=== PATIENT | male | born 1990 | race Caucasian/White ===

== ENCOUNTER 2017-01-09 08:09 | Emergency (ER) | payer OTHER ==
[~2017-01-09] VITALS: Ht 180.3 cm; Wt 88.6 kg
[2017-01-09 08:17] VITALS: BP 81/44; PULSE 51; RESP 18; O2SAT 100
[2017-01-09 08:29] VITALS: BP 97/68; PULSE 83; RESP 20; O2SAT 100
--- NOTE | 2017-01-09 08:29 | ED.REPORT ---
HPI-Extremity Problem Upper Date of Service January 09, 2017 ED Provider: Dr. Kamini Saucedo The patient is a 26 year old male who presents to the ED due to a full thickness laceration to right inner forearm received [employer]. The patient was lifting a large planting pot at work when it broke and cut his arm. He wrapped a piece of cardboard around the cut to try and stop the bleeding and alerted coworkers who applied pressure to the wound. Pt describes losing a large amount of blood. C/o associated light headedness and weakness in right ring finger. Nursing Notes Stated Complaint: RIGHT FOREARM LACERATION Chief Complaint: Extremity Trauma Nursing Notes Reviewed: Yes Allergies: Coded Allergies: No Known Allergies (Unverified , 01/09/17) Scheduled Cephalexin (Keflex) 500 Mg Capsule 500 MG PO TID Scheduled PRN oxyCODONE-Acetaminophen 5-325 mg (oxyCODONE-Acetaminophen 5-325 mg) 1 Each Tablet 1 TAB PO Q6H PRN PRN For Pain General Time Seen by MD: 08:28 Chief Complaint Other (left forearm laceration) Hx Obtained From: Patient Arrived By: Walk-in Onset Occurred: Just prior to arrival Symptom Duration: Since onset Caused by: Accidental Location: : Forearm left Quality: Painful Severity: Current: Mild Recent Healthcare: No recent doctor visit, No recent hospitalization Similar Sx Previous: No Past Medical History Past Medical History denies Past Surgical History denies Social History Drug Use: THC Other Social History: Good social support, Local resident Ambulatory Status Independent Review of Systems Musculoskeletal: Reports: Extremity pain (left forearm laceration ) Neurologic: Reports: Lightheaded, Weakness (in right ring finger), Denies: Change LOC, Numbness Complete sys rev & neg: except as marked. Physical Exam Initial Vital Signs Vital Signs (First) Date Time Temp Pulse Resp B/P Pulse Ox O2 Delivery O2 Flow Rate FiO2 01/09/17 08:17 51 18 81/44 100 Room Air Initial VS: Reviewed Head / Eyes: Atraumatic, Normocephalic ENT: Mucous membranes moist Respiratory: Breath sounds normal, Clear to auscultation Abdomen / GI: Soft, Non-tender, No guarding, No rebound, No distention Lower Extremities: Vascular intact, Neuro intact, No swelling, No tenderness General/Constitutional: Awake, Alert, Cooperative Appearance / Presentation: Positive: Pale Cardiovascular: Regular rhythm, Heart sounds NL, Cap refill not delayed Trauma / Burn / Environmental: Positive: Laceration right forearm 7 cm full thickness laceration w/ clear tendon laceration body of the flexor muscle is lacerated at the tendon insertion and there is an additional mid-tendon laceration weakness in ring finger w/ flexion decreased sensation to tips of all right 5 fingers normal sensation over dorsal and palmar surface of hand Procedures Laceration Management Laceration Management: 3 horizontal sutures 4 mattress sutures Time: 11:06 Procedure Performed by: ED physician Consent / Setup / Site Prep: Informed consent provided, Consent from patient , Hand hygiene observed, Stand sterile technique Location of Wound: right forearm Wound Length: 7 cm Local Anesthesia: Bupivacaine 0.5% Digital Block: No Irrigation: Copious (sodium chloride) Foreign Body Explore / Removal: Explored for foreign body Repair Skin: Nylon Post-Procedure / Complications: Antibiotic oint applied, Dressing applied, No complications, Condition improved, Tolerated procedure well, Patient stable Re-Eval/Medical Decision Re-Evaluation/Progress #1: Time of Eval: 10:26 Patient Status: Pain improved Re-Evaluation/Progress Note: Pt rechecked. Informed pt of consult with orthopedist and need for surgery. Plan for tetanus shot and laceration repair. Pt understands and agrees with plan. Re-Evaluation/Progress #2: Time of Eval: 11:00 Patient Status: Condition improved Re-Evaluation/Progress Note: Laceration management perfomed. Pt tolerated procedure well. He is able to ambulate following the procedure. Plan for splint placement. Re-Evaluation/Progress #3: Time of Eval: 12:15 Patient Status: Condition improved, Complete relief Re-Evaluation/Progress Note: Pt rechecked. Pain is much better and splint is in place. He is neurovascularly intact. Informed pt of plan of treatment and need for follow up. F/U and RTER warnings given. Pt understands and agrees with plan. All questions addressed. Consultation : Referral / Consult Name: Vicente Garrett DO Consulted With: Orthopedic Call Returned at: 09:56 Note: Case discussed. Dr. Garrett advised to do a loose suture close as well as antibotics, tetanus, and dorsal splint. He will need to be seen by Dr. Garrett in just a few days. Counseled Regarding: Diagnosis, Lab results, Need for follow-up, When/why to return to ED Discharge & Departure Impression: Primary Impression: Laceration of forearm, right, with tendon involvement Encounter type: initial encounter Qualified Code: S51.811A - Laceration without foreign body of right forearm, initial encounter Additional Impression: Flexor tendon laceration of forearm with open wound Encounter type: initial encounter Laterality: right Qualified Code: S56.921A - Laceration of unspecified muscles, fascia and tendons at forearm level, right arm, initial encounter Disposition: Home Discharge Condition All VS Reviewed: Yes Condition: Stable Patient Instructions: Laceration (GEN) Additional Instructions: You have severed your flexor tendon and may require surgery. You received a tetanus shot today. Keep the splint in place and take ibuprofen or Percocet as needed for pain. Keep the wound clean and dry. Continue your antibiotics for one week. You will need to see Dr. Garrett, orthopedic surgeon, in the next 1-2 days for further evaluation. Do not return to work before speaking with Dr. Garrett. Return to the Emergency Department for any new or worsening symptoms including lightheadedness, excessive bleeding, signs of infection, redness, warmth, and discharge. I hope you feel better soon! Referrals: Miguel Choudhury MD (PCP) Vicente Garrett DO Scribe Attestation Portion of this note were transcribed by Jeanette Figueroa. I, Dr. Valerie aSucedo, personally performed the history, physical exam, and medical decision-making: I reviewed and confirmed the accuracy for the information in the transcribed note. Signed by: amauri Sidhu, 01/09/17 1000 copies to: Vicente Garrett DO; Miguel Choudhury MD, Shawna L MD January 09, 2017 08:29 Jeanette Figueroa January 09, 2017 08:37
[2017-01-09] MEDS ORDERED: oxyCODONE-Acetamin 5-325 mg Tablet PO ONE (08:45)
[2017-01-09 09:12] VITALS: BP 109/45; PULSE 65; RESP 16; O2SAT 100
[2017-01-09] MEDS ORDERED: TdaP Vaccine 0.5 mL Inj IM ONE (10:10)
[2017-01-09 11:52] VITALS: BP 103/44; PULSE 62; RESP 14; O2SAT 99
[2017-01-09] MEDS ORDERED: CEPH-512 PO (12:34)
[2017-01-09] MEDS ORDERED: OXYC1TAB24 PO (12:34)
[2017-01-09 12:53] VITALS: BP 103/44; PULSE 62; RESP 14; O2SAT 99
== END 2017-01-09 12:54 | disposition home or self-care (01) ==
LOC: SED 08:09
DX: S56.221A Laceration of other flexor muscle, fascia and tendon at forearm level, right arm, initial encounter (principal); W45.8XXA Other foreign body or object entering through skin, initial encounter; Y93.89 Activity, other specified; Y92.9 Unspecified place or not applicable; Y99.0 Civilian activity done for income or pay; Z23 Encounter for immunization

== ENCOUNTER 2017-01-12 14:14 | Day surgery (SDC) | payer OTHER ==
[2017-01-12] VITALS (8 sets, daily range): BP systolic 98–130; BP diastolic 53–75; PULSE 60–75; RESP 13–17; O2SAT 96–98
[~2017-01-12] VITALS: Ht 180.3 cm; Wt 90.2 kg
[~2017-01-12 14:14] MED LIST: CEPH-512 PO; CeFAZolin Inj 2 GM in IV Premix 1 EACH IV SCH; Lactated Ringer's 1,000 ML IV SCH; OXYC1TAB24 PO
[2017-01-12] MEDS ORDERED: Ondansetron 2 mg/mL 2 mL Inj ONE (14:15)
[2017-01-12] MEDS ORDERED: Propofol 10,000 mCg/mL 20 mL Inj ONE (14:15)
[2017-01-12] MEDS ORDERED: Dexamethasone 4 mg/mL Inj ONE (14:15)
[2017-01-12] MEDS ORDERED: fentaNYL-PF 50 mCg/mL 2 mL Inj ONE (14:15)
--- NOTE | 2017-01-12 14:24 | PCM.HPANE ---
Patient Data Surgeon Admitting Provider: Attending Provider:Vicente Garrett DO Primary Care Physician:Bello Other Provider:Lyric Bates Anesthesia Reason for Visit Right Forearm Laceration With Tendon Involvement Ht/WT & BMI Height (Feet): 5 Height (Inches): 11 Weight (Kilograms): 90.174 Body Mass Index 27.00 Allergies Coded Allergies: No Known Allergies (Unverified , 01/11/17) Past Anesthesia History Anesthesia History: Denies:: Anesthesia Reactions, Malignant Hyperthermia Diabetes History Hx Diabetes?: No MRSA MRSA: No Medications Active Scripts oxyCODONE-Acetaminophen 5-325 mg 1 Each Tablet1 Tab PO Q6H PRN For Pain #14 TABLET Ref 0 Prov:Kamini Saucedo MD 01/09/17 Cephalexin (Keflex)500 Mg [id number] Mg PO TID #21 CAPSULE Ref 0 Prov:Kamini Saucedo MD 01/09/17 History History of ENT Problems?: No HEENT History: Denies:: Abnormal Airway Denture Type: None Teeth Condition: Within Normal Limits Hx of Heart Problems?: No Cardiovascular History: Denies:: Heart Murmur Hypertension Hx of Respiratory Problem?: No Respiratory History: Denies:: Use of C-PAP Machine Hx Neurologic Problems?: No Hx of GI Problems?: No Hx of Problems?: No Male Hx: Denies:: Prostate Problems Scrotal Mass Testicular Surgery Skin History: Denies:: History Skin Disorders? Pressure Ulcers Hx Musculoskeletal Problems?: Yes Musculoskeletal History: Positive for:: Musculoskeletal Trauma (RT FOREARM LACERATION(FLEXOR TENDON INVOLVE.)=CURRENT PROBLEM) Hx of Psycho/Social Problems?: No Hx Surgeries?: Yes (EXC & DEBRIDEMENT PILONIDAL CYST X4) Hx Any Other Health Problems?: Yes Other History: Denies:: Cancer Endocrine Disease Hospitalization Thyroid Disease Hx Diabetes: No Hx Substance Use: Yes (THC)Have You Smoked inLast 12 mo: No Stop/Bang S-Snoring: Do You Snore Loudly: No T-Tired: feel tired, fatigued: No O-Obsered: Observed not breath: No P-Blood Pressure: treated: No B- Body Mass Index > 35 kg/m2: No A- Age over 50: No N- Neck Large Circumference: No G- Gender Male: Yes CARL Total Score: 1 CARL Risk Assessment: Low Risk, <3 Yes Risk Assessment Category Category 1A: Patient has history of documented sleep apnea, and HAS NOT received any narcotic, sedative or anesthesia administration during this stay. Category 1B: Patient has history of documented sleep apnea, and HAS received any narcotic , sedative or anesthesia administration during this stay Category 2: Patient has SUSPECTED Obstructive Sleep Apnea, and HAS received any narcotic , sedative or anesthesia administration during this stay. Category 3: Patient has SUSPECTED Obstructive Sleep Apnea and HAS NOT received narcotic, sedative or anesthesia administration during this stay. Category 4: Outpatient in Procedural Areas with known sleep apnea or who screen positive for High Risk via the STOP/BANG questionnaire. Exam Exam General Appearance: Alert, Oriented X3, Cooperative, No Acute Distress HEENT/AIRWAY: MP 1 Lungs: Clear to Auscultation, Normal Air Movement Heart: Exam Unremarkable, Regular Rate/Rhythm, No Murmurs/Rubs/Gallops Plan Impression Patient chart reviewed, patient interviewed and anesthestic plan with risks, benefits, and alternatives discussed, and informed consent obtained. NPO per Anesth. Guidelines: Yes ASA Physical Status: ASA1 Normal Healthy Anesthetic Plan: GA Bene/Risks/Altern/Consents: Yes HP Complete Prior to Induction: Yes Barney Valentino MD January 12, 2017 14:24
[2017-01-12] MEDS ORDERED: Lactated Ringer's 1,000 ML IV ONE ×2 (14:36→17:27)
[2017-01-12] MEDS ORDERED: oxyCODONE-Acetamin 5-325 mg Tablet PO PRN (15:10)
[2017-01-12] MEDS ORDERED: Lidocaine 1%-Epi 1:100,000 20 mL Inj INJ ONE (15:57)
[2017-01-12] MEDS ORDERED: Lactated Ringer's 1,000 ML IV SCH (16:11)
[2017-01-12] MEDS ORDERED: Lactated Ringer's 500 ML IV PRN (16:11)
[2017-01-12] MEDS ORDERED: Phenylephrine 10,000 mCg/mL Inj IVPUSH PRN (16:15)
[2017-01-12] MEDS ORDERED: EPHEDrine Sulfate 50 mg/mL Inj IVPUSH PRN (16:15)
[2017-01-12] MEDS ORDERED: fentaNYL-PF 50 mCg/mL 2 mL Inj IVPUSH PRN (16:15)
[2017-01-12] MEDS ORDERED: Atropine 0.4 mg/mL Inj IVPUSH PRN (16:15)
[2017-01-12] MEDS ORDERED: Dexamethasone 4 mg/mL Inj IVPUSH PRN (16:15)
[2017-01-12] MEDS ORDERED: Ondansetron 2 mg/mL 2 mL Inj IVPUSH PRN (16:15)
[2017-01-12] MEDS ORDERED: HYDROmorphone 1 mg/mL Inj IVPUSH PRN (16:15)
[2017-01-12] MEDS ORDERED: MetoCLOpramide 5 mg/mL 2 mL Inj IVPUSH PRN (16:15)
--- NOTE | 2017-01-12 17:54 | PCM.ANEP1 ---
Post Anesthesia PACU Phase 1 Assessment Vital Signs Vital Signs Date Time Temp Pulse Resp B/P Pulse Ox O2 Delivery O2 Flow Rate FiO2 01/12/17 17:28 36.7 70 14 126/74 98 Room Air 01/12/17 17:26 61 13 114/58 96 01/12/17 17:10 62 14 113/69 96 01/12/17 17:05 60 17 115/53 97 Room Air 01/12/17 17:00 36.8 62 14 113/57 97 Room Air 01/12/17 14:31 36.6 60 14 130/70 98 Room Air Anesthetic Administered: GA Level of Alertness: Awake, talking DOS SANTOS's with Equal Strength: Yes Pain: No Nausea or Vomiting: No CV Function and Hydration: Yes Airway Device: Oralpharangeal Airway Oxygen Delivery: Room Air Lungs: Clear to Auscultation, Normal Air Movement Dermatome Level: Full Sensation PACU Phase 2 Assessment Complications: No Follow up Care: N/A Patient Instructions Provided: Yes Barney Valentino MD January 12, 2017 17:54
--- NOTE | 2017-01-13 19:50 | OP ---
[address] [id number] OPERATIVE REPORT PATIENT: CARLOS A LOGAN : 1990 MR#: [id number] ADMIT: 01/12/2017 JOB ID: [id number] DATE OF SURGERY: 01/12/2017 PREOPERATIVE DIAGNOSIS(ES): Right forearm laceration with laceration of flexor digitorum superficialis to the ring finger. POSTOPERATIVE DIAGNOSIS(ES): 1. Right forearm laceration with complete laceration of the flexor digitorum superficialis to the ring finger. 2. Partial laceration of the flexor digitorum superficialis to the middle finger. 3. Near full laceration of flexor carpi ulnaris. 4. Laceration of the palmaris longus. PROCEDURE: 1. Repair of right ring finger flexor digitorum superficialis at the forearm. 2. Right forearm exploration with repair of the flexor digitorum superficialis to the middle finger. 3. Repair of the flexor carpi ulnaris. 4. Repair of the palmaris longus. SURGEON: Vicente Garrett DO ANESTHESIA: General. HISTORY: This patient is a pleasant, 26-year-old male who was working at [employer] when he was lifting a porcelain pot, when it cracked and came down onto his right forearm. He sustained a laceration to the volar ulnar aspect of the forearm. He was seen at an outlying facility where it was provisionally irrigated and closed. Upon presentation, he has weakness with hand flexion; especially to the ring finger with lack of function to the FDS tendon to the ring finger. Neurologically, he was intact with completely intact sensation in median, radial and ulnar nerve distribution. With his weakness to the hand as well as limitation with any PIP flexion to the ring finger, I discussed with the patient the risks, benefits, and indications to proceed with exploration with likely tendon repair. He understood the risks include, but not limited to, neurovascular injury, tendon injury, infection, failure of fixation, stiffness, persistent pain, all of which may require further intervention. The patient had all questions answered. Consent was signed and placed in chart. PROCEDURE IN DETAIL: The patient was brought to the operative suite and placed supine on the operating room table. Surgical time-out was performed and everyone was in agreement. After appropriate anesthesia was obtained, a right upper arm tourniquet was applied. The right upper extremity prepped and draped in a sterile fashion. Patient's sutures were removed. The incision was carried in a linear fashion both proximally and distally along the ulnar aspect of the transverse incision. Large skin flaps were then raised. Immediately identifiable was a complete laceration to the palmaris longus. Deep to this was a complete laceration of the flexor digitorum superficialis to the ring finger. Elevating of this identified an 80% laceration of the flexor digitorum superficialis to the middle finger. Further ulnarly, the flexor carpi ulnaris demonstrated 90% laceration. The ulnar artery and nerve were identified and were found to be completely intact as well as remaining flexor digitorum superficialis and profundus tendons and the median nerve. Copious irrigation was performed. A direct repair of the tendons were performed first starting with the flexor digitorum superficialis to the middle finger. This was repaired with 5-0 nylon in a cross-stitch fashion reinforced with [id number] 4-0 Vicryl as the tendon at this location was flat. Excellent repair was achieved. Attention was then turned towards the flexor digitorum superficialis to the ring finger. The tendon at this level had more bulk and thus a 4-0 FiberLoop was used to perform a 6-strand core suture repair followed by a 6-0 nylon for epitendinous stitch. Attention was then turned towards the flexor carpi ulnaris. Again a 4-0 FiberLoop was used to perform a 6-strand core suture repair followed by a 6 cross-stitch epitendinous suture. Finally, decision was made to also repair the palmaris longus as the cut tendon ends were easily identifiable within the operative field. This was repaired with a 4-0 FiberLoop in a 4-strand core suture repair further reinforced with 6-0 nylon. Copious irrigation was performed followed by closure of the skin with 4-0 nylon in a simple interrupted fashion. The patient was then placed into a well-padded well-molded dorsal blocking splint. ESTIMATED BLOOD LOSS: Less than 5 cc. COMPLICATIONS: None. DISPOSITION: The patient tolerated the procedure well. Anesthesia was reversed. The patient was transferred to PACU for recovery. POSTOPERATIVE PLAN: The patient will follow up with Occupational Therapy next week to be placed into a dorsal blocking splint and start working on active range of motion protocol. [facility]
== END 2017-01-12 23:59 | disposition home or self-care (01) ==
LOC: SAS 14:14
PROVIDERS: ATTEND Orthopaedic Surgery
PROC: 0LQ50ZZ Repair Right Lower Arm and Wrist Tendon, Open Approach (ICD-10-PCS; principal; 2017-01-12 16:30)
DX: S56.221A Laceration of other flexor muscle, fascia and tendon at forearm level, right arm, initial encounter (principal); S56.123A Laceration of flexor muscle, fascia and tendon of right middle finger at forearm level, initial encounter; S56.821A Laceration of other muscles, fascia and tendons at forearm level, right arm, initial encounter; S51.811A Laceration without foreign body of right forearm, initial encounter; W25.XXXA Contact with sharp glass, initial encounter; Y93.89 Activity, other specified; Y92.512 Supermarket, store or market as the place of occurrence of the external cause; Y99.0 Civilian activity done for income or pay
CPT/HCPCS: 25260; J0690; J1100; J1885; J2250; J2405; J3010; J7120